=== PATIENT | female | born 1940 | race Caucasian/White ===

== ENCOUNTER 2016-08-30 08:10 | Inpatient (IN) | payer MEDICARE, BC ==
[~2016-08-30] VITALS: Ht 154.9 cm; Wt 70.5 kg
[2016-08-30] VITALS (11 sets, daily range): BP systolic 112–158; BP diastolic 48–66
[2016-08-30 09:04] LABS: BASOPHILS 0.2 % (0.0-2.0); EOSINOPHILS 0.2 % (0-7); HEMATOCRIT 42.6 % (36.0-48.0); HEMOGLOBIN 14.5 g/dL (12-16); IMMATURE GRANULOCYTES 0.6 % (0-5); LYMPHOCYTES 8.4 % (15-50); MCH 30.9 pg (26.0-34.0); MCV 90.8 fL (80.0-100.0); MEAN PLATELET VOLUME 12.2 fL (7.4-10.4); MONOCYTES 4.8 % (2-11); NEUTROPHILS 85.8 % (40-80); PLATELET COUNT 188 10x3/uL (130-400); RBC 4.69 10x6/uL (4.00-5.40); RDW 14.4 % (11.5-14.5); WBC 12.8 10x3/uL (4.8-10.8)
[2016-08-30 09:13] LABS: APPEARANCE HAZY (CLEAR); COLOR YELLOW (YELLOW)
[2016-08-30 09:14] LABS: BACTERIA FEW /hpf (NONE SEEN); BILIRUBIN NEGATIVE (NEGATIVE); EPITHELIAL CELLS 0-5 /hpf (0-5); GLUCOSE 1000 mg/dL (NEGATIVE); HYALINE CAST RARE /lpf (NONE SEEN); KETONE LARGE mg/dL (NEGATIVE); LEUKOCYTE ESTERASE TRACE (NEGATIVE); MUCUS <1+ /lpf (NONE SEEN); NITRITE POSITIVE (NEGATIVE); PROTEIN TRACE mg/dL (NEGATIVE); RED CELLS - URINE OCC /hpf (0-5); SPECIFIC GRAVITY 1.015 (1.005-1.020); UROBILINOGEN NORMAL (NORMAL); WHITE CELLS - URINE 0-5 /hpf (0-5)
[2016-08-30 09:21] LABS: ALBUMIN 4.2 g/dL (3.4-5.0); ANION GAP 31.3 mmol/L (8-16); BILIRUBIN - TOTAL 0.7 mg/dL (0.2-1.3); CALCIUM 11.4 mg/dL (8.5-10.1); CREATININE - SERUM 1.4 mg/dL (0.6-1.3); POTASSIUM - SERUM 5.3 mmol/L (3.5-5.1); PROTEIN - SERUM 8.3 g/dL (6.4-8.2)
--- NOTE | 2016-08-30 14:35 | NUR ---
1130 PT RECIEVED MFRONM THE ER .. PT IS AWAKE AND ALERT WITHOUT C/O AT PRESENT .. ADMISSION AND HISTORY COMPLETE SEE FLOW SHEET.. PT IS WITH PIV IN THE LEFT AC NS INFUSING AND INSULIN DRIP INITIATED AT THIS TIME AT 14 UX/HR FOR BS OF 455. 1200 WITHOUT VISITOR AT THIS TIME.. 1230 FSBS DONE 451 INSULIN TITRATED... 1345 PT COTNINUES WITHOUT C/O FSBS 379.. INSULIN TITRATED TO 10UX...
--- NOTE | 2016-08-30 17:59 | NUR ---
1500 WITHOUT VISITORS AT THIS TIME CONTINUE ON INSULIN DRIP .. 1600 TITRATING INSULIN DRIP TO BS .. PT IS GIVEN SIPS H20 .. NPO OTHERWISE.. 1700 ASSISTED OOB TO BSC VOIDS WITHOUT DIFFICULTY.. 1800 FAMILY IN TO SEE PT..
[2016-08-30] MEDS ORDERED: BAYER CHEWABLE81 MG PO (18:21)
[2016-08-30] MEDS ORDERED: FAMOTIDINE10 MG PO (18:22)
[2016-08-30] MEDS ORDERED: NASACORT10.8 ML NASAL (18:22)
[2016-08-30] MEDS ORDERED: ISOSORBIDE MONO30 M1 PO (18:23)
[2016-08-30] MEDS ORDERED: COREG 3.1253.125 MG PO (18:23)
[2016-08-30] MEDS ORDERED: ACTOS30 MG PO (18:24)
[2016-08-30] MEDS ORDERED: GLUCOPHAGE1000 MG PO (18:24)
[2016-08-30] MEDS ORDERED: LISINOPRIL5 MG PO (18:24)
--- NOTE | 2016-08-30 19:17 | NUR ---
REPORT RECIEVED. ASSESSMENT COMPLETE PER FLOW SHEET. VSS REFER FOR COMPLETE FINDINGS. DR SANDOVAL AT BEDSIDE. NO NEW ORDERS RECIEVED. PT GIVEN ICE WATER PER REQUEST. WILL CONTINUE TO MONITOR.
[2016-08-30] MEDS ORDERED: LANTUS INSULIN10 ML SQ (22:06)
--- NOTE | 2016-08-30 23:10 | NUR ---
REASSESSMENT COMPLETE PER FLOW SHEET. NO NEW FINDINGS AT THIS TIME. PT SLEEPING COMFORTABLY. WILL CONINTUE TO MONITOR.
[2016-08-31] VITALS (18 sets, daily range): BP systolic 110–146; BP diastolic 40–64; Ht 154.9 cm; Wt 70.5 kg
--- NOTE | 2016-08-31 03:09 | NUR ---
REASSESSMENT COMPLETE PER FLOW SHEET. VSS. NO NEW CHANGES AT THIS TIME. PT SLEEPING COMFORTABLY. WILL CONTINUE TO MONITOR.
[2016-08-31 04:37] LABS: BASOPHILS 0.1 % (0.0-2.0); EOSINOPHILS 1.7 % (0-7); HEMATOCRIT 35.9 % (36.0-48.0); IMMATURE GRANULOCYTES 0.3 % (0-5); MCH 29.6 pg (26.0-34.0); MCHC 33.4 g/dL (31.0-37.0); MEAN PLATELET VOLUME 12.4 fL (7.4-10.4); MONOCYTES 11.4 % (2-11); NEUTROPHILS 70.5 % (40-80); RBC 4.05 10x6/uL (4.00-5.40); RDW 14.3 % (11.5-14.5)
[2016-08-31 04:38] LABS: MCV 88.6 fL (80.0-100.0); PLATELET COUNT 142 10x3/uL (130-400); WBC 9.4 10x3/uL (4.8-10.8)
[2016-08-31 05:07] LABS: CALCIUM 9.6 mg/dL (8.5-10.1)
[2016-08-31 05:10] LABS: ANION GAP 13.5 mmol/L (8-16); CARBON DIOXIDE 25.4 mmol/L (21.0-32.0); POTASSIUM - SERUM 3.9 mmol/L (3.5-5.1)
--- NOTE | 2016-08-31 08:13 | NUR ---
No. Question Answer Score * Is the patient Alert and Oriented? Yes 0 * How many steps to enter\exit or inside your home? RAMP 0 * PCP DR. SANDOVAL 0 * Pharmacy [facility] ON [address] 0 * Preadmission Environment Home with Family 0 * ADLs Independent 0 * Equipment Glucometer 0 * List name and contact numbers for known caregivers / representatives who currently or will assist patient after discharge: SPOUSE: SILVERIO [phone] DAUGHTER: GER RIVERS [phone] DAUGHTER: PANCHO [phone] 0 * Community resources currently utilized None 0 * Additional services required to return to the preadmission environment? No 0 * Can the patient safely return to the preadmission environment? Yes 0 * Has this patient been hospitalized within the prior 30 days at any hospital? No 0 PATIENT STATES SHE LIVES AT HOME WITH HER , SILVERIO. SHE IN INDEPENDENT IN ALL ADLS. SHE STATES THAT HER DAUGHTER, GER, WILL DRIVE HER HOME AT DISCHARGE. PATIENT'S PCP IS DR. SANDOVAL. [facility] [address] SHE STATES SHE HAS A GLUCOMETER AND ALL HER DIABETIC SUPPLIES. SHE DOES HOWEVER STATES SHE WAS IN [facility] AND DID WITHOUT INSULIN FOR ABOUT A MONTH. SHE STATES THAT GAVE HER INSULIN PENS BUT SHE DID NOT HAVE NEEDLES AND THEY COST 40 DOLLARS AND SHE COULD NOT AFFORD THEM. SHE ALSO HAS A WALKER BUT DOES NOT USE IT. PATIENT DENIES EVER HAVING HOME HEALTH. SHE STATES THERE IS A RAMP TO ENTER HER JOSE ANTONIO. PATIENT DENIES ANY DISCHARGE NEEDS. SHE STATES SHE WILL BE ABLE TO GET HER INSULIN WITH THE BEGINNING OF THE NEW YEAR.
--- NOTE | 2016-08-31 11:45 | NUR ---
PT UP TO BESIDE COMMODE. VOIDED WITHOUT DIFFICULTY. CONCENTRATED URINE NOTED. PT AMBULATED WITHOUT DIFFICULTY. STEADY GAIT NOTED. UP TO CHAIR. CALL LIGHT WITHIN REACH.
--- NOTE | 2016-08-31 13:30 | NUR ---
PT HAD COMPLETE BATH AND LINEN CHANGE. TOLERATED WELL. ASSISTED BACK TO BED. CALL LIGHT WITHIN REACH.
--- NOTE | 2016-08-31 14:00 | HP ---
PATIENT: RUTH VICTOR MEDICAL RECORD: [id number] ACCOUNT: [id number] [facility] [id number] : 41 ADMISSION DATE: 08/30/16 HISTORY AND PHYSICAL EXAMINATION HISTORY OF PRESENT ILLNESS: A 76-year-old white female with type 2 diabetes, apparently ran out of her insulin 2 or 3 days ago. She states she has been "overdoing it," trying to move from one place to another and she started feeling bad this morning. She came in and her glucose was out of control at 587, serum ketones were positive and she was admitted for DKA. PAST MEDICAL AND SURGICAL HISTORY: She has a history of diabetes. Her A1c has never been controlled as long as I have taken care of her. She does not always follow a diabetic diet and she does not come in regularly for followup visits. She has hypertension. She was in [place] in 2014, with chest pain, had an angiogram that showed some disease, but not enough for a stent or any kind of intervention. She has a history of degenerative arthritis and had a partial knee replacement by Dr. Brice a few months ago at [place]. DRUG ALLERGIES: None known. HOME MEDICATIONS: 1. Aspirin 81 mg a day. 2. Carvedilol 3.125 mg twice a day. 3. Pepcid 20 mg once a day. 4. Isosorbide mononitrate 30 mg once a day. 5. Lisinopril 5 mg once a day. 6. Metformin 1000 mg twice a day. 7. Pravastatin 20 mg once a day. 8. She has been taking Lantus via the pen, 40 units a day. SOCIAL HISTORY: She is retired, lives with her . HABITS: Never smoked. No alcohol or drugs. FAMILY HISTORY: Her father at 72 in a car wreck. He had Parkinson's disease, as well as glaucoma and heart disease. Mother at 79 of lung cancer and she had problems with alcohol. REVIEW OF SYSTEMS: GENERAL: No major weight changes. HEENT: No sinus or allergy problems. RESPIRATORY: No history of asthma or emphysema. CARDIAC: See above history with her chest pain from 2015. GASTROINTESTINAL: No heartburn, no diarrhea or constipation. MUSCULOSKELETAL: She has arthritis in her knees and had a partial knee replacement. GENITOURINARY: No significant change there. No significant problems with urinary tract infections. ENDOCRINE: Has uncontrolled diabetes, on insulin. NEUROLOGIC: No migraine headaches or seizure disorders. PSYCHIATRIC: Denies anxiety, or depression. PHYSICAL EXAMINATION: VITAL SIGNS: Temperature 98.6, pulse 97, respirations 12, blood pressure HISTORY AND PHYSICAL [id number] RUTH VICTOR 158/63, O2 sat 97%. GENERAL: Currently she is in the ICU, does not appear in acute distress. She is awake and alert. SKIN: Warm and dry. HEENT: Grossly within normal limits. NECK: Supple. No JVD or bruit. HEART: Regular rate and rhythm without murmur. LUNGS: Clear. ABDOMEN: Soft, flat, nontender. EXTREMITIES: No edema. LABORATORY DATA: In the Emergency Room, her urinalysis was yellow and hazy with trace protein, large ketones, trace blood, positive nitrite, trace leukocyte esterase, a few bacteria, urine glucose was 1000 mg per deciliter. Sodium was 128, potassium 5.3, chloride 86, CO2 of 16, BUN 35, creatinine 1.4, glucose was 587 initially, calcium 11.4. Liver functions were all normal, amylase 53, lipase 139. CBC with a white count of 12,800; hemoglobin of 14.5, hematocrit of 42.6. ABG 7.334, pCO2 of 25, pO2 of 91. ASSESSMENT: Diabetic ketoacidosis. PLAN: We will admit to the ICU, started on insulin drip, monitor electrolytes. Start her on antibiotics for her urinary tract infection. Here we started on her medicines. Other tests or procedures as warranted. TRANSINT:[id number] Voice Confirmation ID: [id number] DOCUMENT ID: [id number] KRISTOPHER SANDOVAL MD at 1400 CC: [id number] DICTATION DATE: 08/30/162215 CELLULAR TOWER CLIMBER: 08/31/16 0220 ADM IN [place] [id number] [place] [address]
--- NOTE | 2016-08-31 21:39 | NUR ---
PT RECIEVED TO ROOM 2227
--- NOTE | 2016-08-31 22:04 | NUR ---
ALERT ORIENTED CONVERSANT. PROVIDED WATER PER REQUEST. DENIES FURTHER NEEDS.
[2016-09-01] VITALS: BP 138/53
[2016-09-01 04:00] VITALS: BP 123/40
[2016-09-01 06:10] LABS: CARBON DIOXIDE 26.6 mmol/L (21.0-32.0); CREATININE - SERUM 0.8 mg/dL (0.6-1.3); POTASSIUM - SERUM 3.6 mmol/L (3.5-5.1)
--- NOTE | 2016-09-01 07:30 | NUR ---
SLEEPING QUIETLY RESP EVEN AND UNLABORED AT PRESENT DENIES ANY NEEDS AT THIS TIME STATES SHE,S SLEEPY CANT GET ANY IN THE HOSPITAL AT PRESENT.
[2016-09-01 07:57] VITALS: BP 144/58
--- NOTE | 2016-09-01 07:57 | NUR ---
SLEEPING QUIETLY AT PRESENT RESP EVEN AND UNLABORED AT PRESENT DENIES ANY NEEDS AT THIS TIME.
[2016-09-01] MEDS ORDERED: LANTUS INSULIN10 ML SQ (08:33)
--- NOTE | 2016-09-01 09:00 | NUR ---
MEDS GIVEN KEL WELL AT PRESENT KEL WELL.
--- NOTE | 2016-09-01 10:56 | NUR ---
09/01/2016 10:43 DCP: Discharge Planning Patient Name: RUTH VICTOR Encounter No: [id number] : 1940 Primary Insurance: MEDICARE A & B Anticipated DC Date: Planned Disposition: Home DCP follow-up note: DC order rec'd. Patient and family in agreement with discharge plan. No changes to plan. Case management will follow and assist as needed. Snow Torres
--- NOTE | 2016-09-01 10:57 | NUR ---
IV DCD CATH INTACT SITE CLEAN AND DRY WITHOUT REDDNESS OR EDEMA NOTED. DISCHARGE INSTRUCTIONS GONE OVER WITH PT DEMONSTRATES UNDERSTANDING AT PRESENT.LEFT VIA W/C AT PRESENT.
--- NOTE | 2016-09-01 11:05 | NUR ---
LEFT VIA W/C AT PRESENT AT AT SIDE.
== END 2016-09-01 11:06 | disposition home or self-care (01) | DRG 638 ==
LOC: D.ER 08:10 → D.ICU 10:15 → D.MS 08-31 21:42
PROVIDERS: Emergency Medicine; ADMIT Family Medicine
DX: E13.10 Other specified diabetes mellitus with ketoacidosis without coma (principal); N39.0 Urinary tract infection, site not specified; Z79.4 Long term (current) use of insulin; I10 Essential (primary) hypertension